=== PATIENT | female | born 1985 | race African-American/Black ===

== ENCOUNTER 2024-04-12 23:44 | Emergency (ER) | payer MEDICAID ==
[~2024-04-12] VITALS: Ht 157.5 cm; Wt 79.0 kg
[2024-04-13] MEDS ORDERED: P20 MT (00:35)
[2024-04-13] MEDS ORDERED: ALBU90AE INH (00:35)
[2024-04-13] MEDS: METHYLPREDNISOLONE SOD SUCC 125MG/2ML (ACT-O-VIAL) IV STA (00:50)
[2024-04-13] MEDS: ALBUTEROL (0.083%) 2.5MG/3ML NEB HHN STA (00:50)
[2024-04-13] MEDS: IPRATROPIUM BROMIDE (0.02%) 0.5MG/2.5ML NEB HHN STA (01:04)
[2024-04-13 01:06] VITALS: PULSE 82; RESP 24; O2SAT 97
[2024-04-13 01:30] VITALS: BP 123/75; PULSE 85; RESP 19; O2SAT 100
== END 2024-04-13 01:30 | disposition home or self-care (01) ==
LOC: ER 23:56
DX: J45.901 Unspecified asthma with (acute) exacerbation (principal); I50.9 Heart failure, unspecified; Z88.5 Allergy status to narcotic agent; Z88.2 Allergy status to sulfonamides; Z98.890 Other specified postprocedural states; Z87.42 Personal history of other diseases of the female genital tract
CPT/HCPCS: 99283; 71045; 94640; 96374; J2919; Z7610 ×2